=== PATIENT | male | born 1945 | race Caucasian/White ===

== ENCOUNTER → 2020-07-23 | Outpatient (CLI) | payer BC, MEDICARE | LOC: OPSV 11:35 | DX: M06.9 Rheumatoid arthritis, unspecified (principal) | CPT/HCPCS: 96365; 96375; J1602; J2920 ==

== ENCOUNTER → 2020-09-18 | Outpatient (CLI) | payer BC, MEDICARE ==
[~2020-09-18] VITALS: Ht 172.7 cm; Wt 99.7 kg
== END ==
LOC: OPSV 09-17 11:00
DX: M06.9 Rheumatoid arthritis, unspecified (principal)
CPT/HCPCS: 96365; 96375; J1602; J2920

== ENCOUNTER → 2020-11-13 | Outpatient (CLI) | payer BC, MEDICARE ==
[~2020-11-13] VITALS: Ht 172.7 cm; Wt 99.8 kg
== END ==
LOC: OPSV 09:00
DX: M06.9 Rheumatoid arthritis, unspecified (principal)
CPT/HCPCS: 96365; 96375; J1602; J2920

== ENCOUNTER → 2021-01-08 | Outpatient (CLI) | payer BC, MEDICARE ==
[~2021-01-08] VITALS: Ht 172.7 cm; Wt 99.8 kg
== END ==
LOC: OPSV 09:00
DX: M06.9 Rheumatoid arthritis, unspecified (principal)
CPT/HCPCS: 96365; 96375; J1602; J2920

== ENCOUNTER → 2021-03-05 | Outpatient (CLI) | payer BC, MEDICARE ==
[~2021-03-05] VITALS: Ht 172.7 cm; Wt 99.8 kg
== END ==
LOC: OPSV 08:46
DX: M06.9 Rheumatoid arthritis, unspecified (principal)
CPT/HCPCS: 96365; 96375; J1602; J2920

== ENCOUNTER → 2021-04-29 | Outpatient (CLI) | payer BC, MEDICARE ==
[~2021-04-29] VITALS: Ht 172.7 cm; Wt 99.8 kg
== END ==
LOC: OPSV 09:00
DX: M06.9 Rheumatoid arthritis, unspecified (principal)
CPT/HCPCS: 96365; 96375; J1602; J2920

== ENCOUNTER → 2021-06-24 | Outpatient (CLI) | payer BC, MEDICARE ==
[~2021-06-24] VITALS: Ht 172.7 cm; Wt 99.8 kg
== END ==
LOC: OPSV 08:50
DX: M06.9 Rheumatoid arthritis, unspecified (principal)
CPT/HCPCS: 96365; 96375; J1602; J2920

== ENCOUNTER → 2021-08-19 | Outpatient (CLI) | payer BC, MEDICARE ==
[~2021-08-19] VITALS: Ht 172.7 cm; Wt 99.7 kg
== END ==
LOC: OPSV 09:00
DX: M06.9 Rheumatoid arthritis, unspecified (principal)
CPT/HCPCS: 96365; 96375; J1602; J2920

== ENCOUNTER → 2021-10-20 | Outpatient (CLI) | payer BC, MEDICARE | LOC: OPSV 10-14 09:00 | DX: M06.9 Rheumatoid arthritis, unspecified (principal) | CPT/HCPCS: 96365; 96375; J1602; J2920 ==